=== PATIENT | female | born 2005 | race Caucasian/White ===

== ENCOUNTER 2024-09-09 14:12 | Emergency (ER) | payer OTHER | END 2024-09-09 14:37 | disposition left against medical advice (07) | LOC: ER 14:12 | DX: R51.9 Headache, unspecified (principal); Z53.21 Procedure and treatment not carried out due to patient leaving prior to being seen by health care provider; V89.2XXA Person injured in unspecified motor-vehicle accident, traffic, initial encounter; Y93.89 Activity, other specified; Y92.89 Other specified places as the place of occurrence of the external cause; Y99.8 Other external cause status ==

== ENCOUNTER 2024-09-09 17:33 | Emergency (ER) | payer OTHER ==
[~2024-09-09] VITALS: Ht 175.3 cm; Wt 82.3 kg
[2024-09-09 18:12] VITALS: BP 142/82; PULSE 77; RESP 16; TEMP 99.3; O2SAT 96
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
== END 2024-09-09 19:36 | disposition home or self-care (01) ==
LOC: ER 17:37
DX: S06.0X0A Concussion without loss of consciousness, initial encounter (principal); G44.311 Acute post-traumatic headache, intractable; V89.2XXA Person injured in unspecified motor-vehicle accident, traffic, initial encounter; Y93.89 Activity, other specified; Y92.89 Other specified places as the place of occurrence of the external cause; Y99.8 Other external cause status
CPT/HCPCS: 70450